=== PATIENT | male | born 1995 | race Caucasian/White ===

== ENCOUNTER 2019-07-04 16:12 | Emergency (ER) | payer MEDICAID, OTHER ==
[~2019-07-04] VITALS: Ht 165.1 cm; Wt 55.3 kg
[~2019-07-04 16:12] MED LIST: DICY10CA40 PO; ONDA4TAB14 PO
[2019-07-04 16:16] VITALS: Ht 165.1 cm; Wt 55.3 kg
[2019-07-04] MEDS ORDERED: ONDANSETRON (ODT) 4 MG TAB ODT STA (18:21)
[2019-07-04] MEDS ORDERED: ACETAMINOPHEN 500 MG TAB PO STA (18:21)
[2019-07-04 20:22] VITALS: BP 122/82; PULSE 65; RESP 16
== END 2019-07-04 20:23 | disposition home or self-care (01) ==
LOC: FTE 16:12
DX: R11.2 Nausea with vomiting, unspecified (principal); R19.7 Diarrhea, unspecified; R10.11 Right upper quadrant pain
CPT/HCPCS: 36415; 76705; 80053; 81003; 83690; 85025; Z7502; Z7610